=== PATIENT | male | born 1985 | race Caucasian/White ===

== ENCOUNTER 2017-03-05 00:02 | Emergency (ER) | payer BC ==
[~2017-03-05] VITALS: Ht 188 cm; Wt 170.1 kg
== END 2017-03-05 00:50 | disposition home or self-care (01) ==
LOC: SED 00:02
DX: S16.1XXA Strain of muscle, fascia and tendon at neck level, initial encounter (principal); M54.12 Radiculopathy, cervical region; X58.XXXA Exposure to other specified factors, initial encounter
CPT/HCPCS: 99283